=== PATIENT | female | born 1950 | race Caucasian/White ===

== ENCOUNTER 2024-02-02 07:54 | Day surgery (SDC) | payer MEDICARE ==
[2024-02-02] MEDS ORDERED: Sodium Chloride 0.9% 10 ML Syringe FLUSH PRN (08:30)
[2024-02-02] MEDS: Sodium Chloride 0.9% 10 ML Syringe FLUSH ONE (08:38)
[2024-02-02] MEDS ORDERED: Midazolam 1 MG/ML 2 ML SDV ONE (08:51)
== END 2024-02-02 09:43 | disposition home or self-care (01) ==
LOC: JP.SDS 07:54
PROVIDERS: ATTEND Ophthalmology
DX: H26.9 Unspecified cataract (principal)
CPT/HCPCS: 66984; J2250; J3490; V2632; 00142-QZ

== ENCOUNTER 2024-02-16 06:36 | Day surgery (SDC) | payer MEDICARE ==
[2024-02-16] MEDS ORDERED: Sodium Chloride 0.9% 10 ML Syringe FLUSH PRN (07:30)
[2024-02-16] MEDS ORDERED: Midazolam 1 MG/ML 2 ML SDV ONE (08:09)
== END 2024-02-16 08:33 | disposition home or self-care (01) ==
LOC: JP.SDS 06:36
PROVIDERS: ATTEND Ophthalmology
DX: H25.11 Age-related nuclear cataract, right eye (principal)
CPT/HCPCS: 66984; J2250; V2632